=== PATIENT | male | born 1995 ===

== ENCOUNTER 2023-08-08 13:34 | Outpatient (CLI) | payer BC, SELFPAY ==
--- NOTE | ~2023-08-08 | US_ITS ---
US scrotum doppler INDICATION: Lump in scrotum. TECHNIQUE: Testicular sonogram utilizing grayscale and color Doppler FINDINGS: The testes are normal in size and appearance. No focal lesions are seen. The right testes measures 3.4 x 2.5 x 2.8 cm centimeters, and the left testis measures 3.3 x 3 x 2.4 cm cm. There is n ormal vascular flow to both testes. No significant abnormality of the epididymis. There is no varicocele or hydrocele. IMPRESSION: 1. NORMAL TESTICULAR ULTRASOUND. Reviewed, dictated and finalized at location [employer]
== END 2023-08-08 13:35 | disposition home or self-care (01) ==
LOC: ANHIMG 13:37
DX: N50.89 Other specified disorders of the male genital organs (principal)
CPT/HCPCS: 76870; 93976